=== PATIENT | female | born 1950 | race Caucasian/White ===

== ENCOUNTER 2020-02-14 17:34 | Observation (INO) ==
[2020-02-14 18:08] LABS: Basophils % 0.7 %; Eosinophils % 0.3 %; Hematocrit 27.8 % (35.3-44.9); Immature Granulocytes % 2.7 % (0-4); Immature Platelets 9.4 % (1.1-6.1); Lymphocytes # 1.2 K/mcL (0.6-4.6); Lymphocytes % 20.9 %; Mean Corpuscular HGB Conc 32.4 g/dL (31.6-35.5); Mean Corpuscular Hemoglobin 34.2 pg (28.0-33.3); Mean Corpuscular Volume 105.7 fL (83.0-100.0); Mean Platelet Volume 11.9 fL (9.4-12.4); Monocytes # 0.6 K/mcL (0.0-1.3); Monocytes % 9.4 %; Neutrophils # 3.9 K/mcL (1.6-8.9); Red Blood Count 2.63 M/mcL (3.82-4.97); Red Cell Distribution Width 13.9 % (11.5-14.5); White Blood Count 5.8 K/mcL (4.3-11.1)
[2020-02-14 18:09] LABS: Platelet Count 111 K/mcL (140-400)
[2020-02-14 18:26] LABS: BUN/Creatinine Ratio 26 (6-26); Blood Urea Nitrogen 27 mg/dL (8-23); Calcium 9.7 mg/dL (8.6-10.3); Carbon Dioxide 34 mEq/L (23-29); Chloride 96 mEq/L (98-107); Glucose 118 mg/dL (70-105); Magnesium 1.6 mg/dL (1.6-2.6); Osmolality,Calculated 290 (280-300); Phosphorous 3.4 mg/dL (2.7-4.5); Potassium 4.3 mEq/L (3.5-5.1); Sodium 137 mEq/L (136-145); eGFR For African Americans > 60 (> 60); eGFR For Non-African Americans 53 (> 60)
[2020-02-14 18:27] LABS: Creatine Kinase 85 Units/L (30-223)
[2020-02-14 18:28] LABS: Troponin I < 0.03 ng/mL (< 0.04)
[2020-02-14 18:33] LABS: Bilirubin,Urine Negative (Negative); Blood,Urine Negative (Negative); Clarity,Urine Clear (Clear); Color,Urine Colorless (Yellow); Glucose,Urine (UA) Normal (Normal); Ketones,Urine Trace mg/dL (Negative); Leukocyte Esterase,Urine Negative (Negative); Nitrite,Urine Negative (Negative); Protein,Urine Negative (Neg-Trace); Specific Gravity,Urine 1.013 (1.010-1.025); Urobilinogen,Urine Normal (Normal)
[2020-02-14 18:40] LABS: Amphetamine Screen,Urine Negative ng/mL (Cutoff=1000); Barbiturate Screen,Urine Negative ng/mL (Cutoff=200); Benzodiazepines Screen,Urine Negative ng/mL (Cutoff=200); Cannabinoid Screen,Urine Negative ng/mL (Cutoff = 50); Cocaine Screen,Urine Negative ng/mL (Cutoff= 300); Opiate Screen,Urine Negative ng/mL (Cutoff=300); Phencyclidine Screen,Urine Negative ng/mL (Cutoff=25)
[2020-02-14 18:49] LABS: INR 0.9; Prothrombin Time 10.6 Seconds (9.4-12.1)
[2020-02-14 18:52] LABS: Activated Partial Thrombo Time 34.6 Seconds (26.0-36.0)
[2020-02-14 18:56] LABS: Alanine Aminotransferase 15 Units/L (7-52); Albumin 3.5 g/dL (3.5-5.7); Albumin/Globulin Ratio 1.3 (1.1-2.2); Alkaline Phosphatase 84 Units/L (34-104); Aspartate Amino Transferase 18 Units/L (13-39); Bilirubin,Direct 0.1 mg/dL (0.0-0.2); Bilirubin,Indirect 0.2 mg/dL (0.0-1.0); Bilirubin,Total 0.3 mg/dL (0.3-1.0); Globulin 2.8 g/dL (2.4-3.5); Total Protein 6.3 g/dL (6.4-8.9)
[2020-02-14 19:10] LABS: Lipase 192 Units/L (11-82)
[2020-02-14 19:33] LABS: VBG HCO3 36 mEq/L (21-27); VBG PCO2 57 mmHg (41-51); VBG PH 7.41 pH Units (7.32-7.42); VBG PO2 138 mmHg (25-50)
[2020-02-14 19:57] LABS: Valproate 66 mcg/mL (50-100)
[2020-02-14] MEDS ORDERED: Naloxone 0.4 MG/ML INJ IVP PRN (21:18)
[2020-02-14] MEDS ORDERED: 0.9 % Sodium Chloride 1,000 ML IVC ONE (23:59)
[2020-02-15 03:42] LABS: Hemoglobin 8.2 g/dL (11.5-15.4); Mean Corpuscular HGB Conc 31.5 g/dL (31.6-35.5); Mean Corpuscular Hemoglobin 33.3 pg (28.0-33.3); Mean Corpuscular Volume 105.7 fL (83.0-100.0); Platelet Count 109 K/mcL (140-400); Red Blood Count 2.46 M/mcL (3.82-4.97); Red Cell Distribution Width 13.6 % (11.5-14.5); White Blood Count 4.7 K/mcL (4.3-11.1)
[2020-02-15 04:00] LABS: BUN/Creatinine Ratio 27 (6-26); Blood Urea Nitrogen 25 mg/dL (8-23); Calcium 9.7 mg/dL (8.6-10.3); Carbon Dioxide 36 mEq/L (23-29); Chloride 97 mEq/L (98-107); Glucose 75 mg/dL (70-105); Osmolality,Calculated 295 (280-300); Sodium 141 mEq/L (136-145); eGFR For African Americans > 60 (> 60); eGFR For Non-African Americans > 60 (> 60)
[2020-02-15 07:17] VITALS: BP 146/77
[2020-02-15] MEDS ORDERED: Loratadine 10 MG TABLET PO PRN (09:04)
[2020-02-15] MEDS ORDERED: Acetaminophen 325 MG TABLET PO PRN (09:04)
[2020-02-15] MEDS ORDERED: Valproic Acid Oral Soln 250 MG/5 ML UDC PO SCH ×2 (09:15→21:00)
[2020-02-15] MEDS ORDERED: Cholecalciferol (D-3) 1,000 UNIT (25MCG) TABLET PO SCH (09:15)
[2020-02-15] MEDS ORDERED: Fluticasone Propionate Nasal 50 MCG/SPRAY BOTTLE NS SCH (09:15)
[2020-02-15] MEDS ORDERED: Isosorbide MONOnitrate (24 HR) 30 MG TAB.ER.24H PO SCH (09:15)
[2020-02-15] MEDS ORDERED: PARoxetine 20 MG TABLET PO SCH (09:15)
[2020-02-15] MEDS ORDERED: Aspirin 81 MG TAB.CHEW PO SCH (09:15)
[2020-02-15] MEDS ORDERED: Metoprolol XL (24 HR) Succ 50 MG TAB.ER.24H PO SCH (09:15)
[2020-02-15] MEDS ORDERED: Budesonide/Formoterol 160/4.5 1 PUFF INH IH SCH (10:00)
[2020-02-15] MEDS ORDERED: Tiotropium 18 MCG inhalation IH SCH (10:00)
[2020-02-15] MEDS ORDERED: Ipratropium/Albuterol Neb 3 ML IH SCH (12:00)
[2020-02-15] MEDS ORDERED: Melatonin 3 MG TABLET PO SCH (21:00)
[2020-02-15] MEDS ORDERED: Chlorhexidine Rinse 15 ML MOUTHWASH MM SCH (21:00)
[2020-02-15] MEDS ORDERED: traZODone 50 MG TABLET PO SCH (21:00)
[2020-02-16] MEDS ORDERED: Furosemide 20 MG TABLET PO SCH (09:00)
== END 2020-02-15 18:16 | disposition other institution (70) ==
LOC: 3BNU 17:34 → EMEROOARM 17:34 → SUATTDRO 20:23 → 3BNU 20:58
PROVIDERS: ADMIT Family Medicine; ATTEND Internal Medicine

== ENCOUNTER 2020-02-28 16:21 | Inpatient (IN) ==
[2020-02-28] MEDS ORDERED: 0.9 % Sodium Chloride 1,000 ML IVC ONE ×3 (16:42→19:59)
[2020-02-28] MEDS ORDERED: Ondansetron 4 MG/2 ML VIAL IVP ONE (16:44)
[2020-02-28 17:25] LABS: Bilirubin,Urine Negative (Negative); Blood,Urine Negative (Negative); Clarity,Urine Clear (Clear); Color,Urine Light-Yellow (Yellow); Glucose,Urine (UA) Normal (Normal); Ketones,Urine Negative (Negative); Leukocyte Esterase,Urine Negative (Negative); Nitrite,Urine Negative (Negative); PH,Urine 6.5 pH Units (5.0-8.0); Protein,Urine Negative (Neg-Trace); Specific Gravity,Urine 1.022 (1.010-1.025); Urobilinogen,Urine Normal (Normal)
[2020-02-28 17:31] LABS: Basophils % 0.5 %; Eosinophils # 0.1 K/mcL (0.0-0.6); Eosinophils % 1.4 %; Hematocrit 30.3 % (35.3-44.9); Hemoglobin 9.7 g/dL (11.5-15.4); Immature Granulocytes % 0.8 % (0-4); Lymphocytes # 1.3 K/mcL (0.6-4.6); Lymphocytes % 35.7 %; Mean Corpuscular Hemoglobin 34.2 pg (28.0-33.3); Mean Corpuscular Volume 106.7 fL (83.0-100.0); Mean Platelet Volume 10.6 fL (9.4-12.4); Monocytes # 0.3 K/mcL (0.0-1.3); Monocytes % 8.4 %; Platelet Count 189 K/mcL (140-400); Red Blood Count 2.84 M/mcL (3.82-4.97); Red Cell Distribution Width 14.1 % (11.5-14.5); Segmented Neutrophils % 53.2 %; White Blood Count 3.7 K/mcL (4.3-11.1)
[2020-02-28 17:39] LABS: Amphetamine Screen,Urine Negative ng/mL (Cutoff=1000); Barbiturate Screen,Urine Negative ng/mL (Cutoff=200); Benzodiazepines Screen,Urine Negative ng/mL (Cutoff=200); Cannabinoid Screen,Urine Negative ng/mL (Cutoff = 50); Cocaine Screen,Urine Negative ng/mL (Cutoff= 300); Opiate Screen,Urine Negative ng/mL (Cutoff=300); Phencyclidine Screen,Urine Negative ng/mL (Cutoff=25)
[2020-02-28 17:51] LABS: Alanine Aminotransferase 24 Units/L (7-52); Albumin 3.5 g/dL (3.5-5.7); Albumin/Globulin Ratio 1.5 (1.1-2.2); Alkaline Phosphatase 71 Units/L (34-104); Aspartate Amino Transferase 23 Units/L (13-39); BUN/Creatinine Ratio 30 (6-26); Bilirubin,Direct 0.1 mg/dL (0.0-0.2); Bilirubin,Indirect 0.2 mg/dL (0.0-1.0); Bilirubin,Total 0.3 mg/dL (0.3-1.0); Blood Urea Nitrogen 26 mg/dL (8-23); Calcium 10.1 mg/dL (8.6-10.3); Carbon Dioxide 43 mEq/L (23-29); Chloride 98 mEq/L (98-107); Ethanol < 10 mg/dL (Less than 10); Globulin 2.4 g/dL (2.4-3.5); Glucose 107 mg/dL (70-105); Osmolality,Calculated 299 (280-300); Potassium 4.5 mEq/L (3.5-5.1); Sodium 142 mEq/L (136-145); Total Protein 5.9 g/dL (6.4-8.9); Troponin I < 0.03 ng/mL (< 0.04); Valproate 83 mcg/mL (50-100); eGFR For African Americans > 60 (> 60); eGFR For Non-African Americans > 60 (> 60)
[2020-02-28 19:30] LABS: Adenovirus Not Detected (Not Detect); Coronavirus 229E Not Detected (Not Detect); Coronavirus HKU1 Not Detected (Not Detect); Coronavirus NL63 Not Detected (Not Detect); Coronavirus OC43 Not Detected (Not Detect)
[2020-02-28 19:33] LABS: Bordetella Pertussis Not Detected (Not Detect); Chlamydophila pneumoniae Not Detected (Not Detect); Human Metapneumovirus Not Detected (Not Detect); Human Rhinovirus/Enterovirus Not Detected (Not Detect); Influenza A Subtype 2009 H1 Not Detected (Not Detect); Influenza B Not Detected (Not Detect); Mycoplasma pneumoniae Not Detected (Not Detect); Parainfluenza Virus 1 Not Detected (Not Detect); Parainfluenza Virus 2 Not Detected (Not Detect); Parainfluenza Virus 3 Not Detected (Not Detect); Parainfluenza Virus 4 Not Detected (Not Detect); Respiratory Syncytial Virus Not Detected (Not Detect)
[2020-02-28] MEDS ORDERED: Piperacillin/Tazobactam 3.375 GM in 0.9 % Sodium Chloride Mini Bag 100 ML IVPB ONE (19:59)
[2020-02-28] MEDS ORDERED: Vancomycin 1,500 MG/265 ML IV.SOLN IVPB ONE (19:59)
[2020-02-28] MEDS ORDERED: Azithromycin 500 MG in D5% in Water 250 ML IVPB ONE (19:59)
[2020-02-28] MEDS ORDERED: Naloxone 0.4 MG/ML INJ IVP PRN (22:22)
[2020-02-28 22:55] LABS: ABG Base Excess 12 mEq/L (-2 to 3); ABG HCO3 41 mEq/L (21-27); ABG Oxygen Saturation 90 % (95-98); ABG PCO2 86 mmHg (35-45); ABG PH 7.28 pH Units (7.32-7.45); ABG PO2 70 mmHg (85-104); ABG TCO2 43 mEq/L (20-26); Blood Gas VT 450 cc
[2020-02-28] MEDS ORDERED: Ondansetron 4 MG/2 ML VIAL IVP PRN (23:51)
[2020-02-29] MEDS: Ipratropium/Albuterol Neb 3 ML IH SCH ×5 (00:15→21:44)
[2020-02-29] MEDS: Valproic Acid Oral Soln 250 MG/5 ML UDC PO SCH ×3 (00:20→21:26)
[2020-02-29 04:09] LABS: ABG Base Excess 15 mEq/L (-2 to 3); ABG HCO3 45 mEq/L (21-27); ABG Oxygen Saturation 100 % (95-98); ABG PCO2 89 mmHg (35-45); ABG PH 7.31 pH Units (7.32-7.45); ABG PO2 196 mmHg (85-104); ABG TCO2 47 mEq/L (20-26); Blood Gas VT 450 cc
[2020-02-29 05:52] LABS: Hematocrit 29.1 % (35.3-44.9); Hemoglobin 9.1 g/dL (11.5-15.4); Mean Corpuscular HGB Conc 31.3 g/dL (31.6-35.5); Mean Corpuscular Hemoglobin 34.6 pg (28.0-33.3); Mean Corpuscular Volume 110.6 fL (83.0-100.0); Mean Platelet Volume 11.3 fL (9.4-12.4); Platelet Count 172 K/mcL (140-400); Red Blood Count 2.63 M/mcL (3.82-4.97); Red Cell Distribution Width 14.4 % (11.5-14.5)
[2020-02-29 06:05] LABS: BUN/Creatinine Ratio 33 (6-26); Blood Urea Nitrogen 26 mg/dL (8-23); Calcium 9.1 mg/dL (8.6-10.3); Carbon Dioxide 37 mEq/L (23-29); Chloride 102 mEq/L (98-107); Glucose 134 mg/dL (70-105); Osmolality,Calculated 301 (280-300); Potassium 5.3 mEq/L (3.5-5.1); Sodium 142 mEq/L (136-145); eGFR For African Americans > 60 (> 60); eGFR For Non-African Americans > 60 (> 60)
[2020-02-29] MEDS: Lactulose Oral Soln 20 GM/30 ML UDC PO SCH ×2 (07:44→21:26)
[2020-02-29] MEDS: PARoxetine 20 MG TABLET PO SCH (07:44)
[2020-02-29] MEDS ORDERED: Aspirin 81 MG TAB.CHEW PO SCH (09:00)
[2020-02-29 09:25] LABS: Potassium 5.1 mEq/L (3.5-5.1)
[2020-02-29] MEDS: Budesonide/Formoterol 160/4.5 1 PUFF INH IH SCH ×3 (10:38→21:44)
[2020-02-29 11:12] LABS: Thyroid Stimulating Hormone 1.25 mcIU/mL (0.340-5.600)
[2020-02-29 15:27] LABS: ABG Base Excess 13 mEq/L (-2 to 3); ABG HCO3 40 mEq/L (21-27); ABG Oxygen Saturation 95 % (95-98); ABG PCO2 67 mmHg (35-45); ABG PH 7.38 pH Units (7.32-7.45); ABG PO2 79 mmHg (85-104); ABG TCO2 42 mEq/L (20-26); Blood Gas VT 500 cc
[2020-02-29 21:57] LABS: ABG Base Excess 11 mEq/L (-2 to 3); ABG HCO3 37 mEq/L (21-27); ABG Oxygen Saturation 96 % (95-98); ABG PCO2 62 mmHg (35-45); ABG PH 7.39 pH Units (7.32-7.45); ABG PO2 86 mmHg (85-104); ABG TCO2 39 mEq/L (20-26); Blood Gas VT 500 cc
[2020-03-01] MEDS: Lactulose Oral Soln 20 GM/30 ML UDC PO SCH ×3 (00:02→20:50)
[2020-03-01] MEDS: Valproic Acid Oral Soln 250 MG/5 ML UDC PO SCH ×2 (00:05→20:50)
[2020-03-01] MEDS: Ipratropium/Albuterol Neb 3 ML IH SCH ×4 (03:31→21:23)
[2020-03-01 05:12] LABS: Basophils % 0.5 %; Eosinophils % 0.5 %; Hematocrit 29.1 % (35.3-44.9); Hemoglobin 9.1 g/dL (11.5-15.4); Immature Granulocytes % 1.6 % (0-4); Lymphocytes # 1.9 K/mcL (0.6-4.6); Lymphocytes % 29.6 %; Mean Corpuscular HGB Conc 31.3 g/dL (31.6-35.5); Mean Corpuscular Hemoglobin 34.6 pg (28.0-33.3); Mean Corpuscular Volume 110.6 fL (83.0-100.0); Mean Platelet Volume 11.4 fL (9.4-12.4); Monocytes # 0.6 K/mcL (0.0-1.3); Monocytes % 9.7 %; Neutrophils # 3.7 K/mcL (1.6-8.9); Platelet Count 147 K/mcL (140-400); Red Blood Count 2.63 M/mcL (3.82-4.97); Red Cell Distribution Width 14.9 % (11.5-14.5); Segmented Neutrophils % 58.1 %; White Blood Count 6.3 K/mcL (4.3-11.1)
[2020-03-01 05:31] LABS: Calcium 9.4 mg/dL (8.6-10.3); Potassium 4.4 mEq/L (3.5-5.1)
[2020-03-01 05:56] LABS: Folate 7.4 ng/mL (3.0-16.0)
[2020-03-01 06:05] LABS: Platelet Estimate Normal (Normal)
[2020-03-01] MEDS: PARoxetine 20 MG TABLET PO SCH (08:27)
[2020-03-01] MEDS: Budesonide/Formoterol 160/4.5 1 PUFF INH IH SCH ×2 (10:38→21:23)
[2020-03-01] MEDS: *HR* Heparin 5,000 UNIT/ML VIAL SQ SCH ×2 (14:57→20:51)
[2020-03-02 03:43] LABS: BUN/Creatinine Ratio 26 (6-26); Blood Urea Nitrogen 24 mg/dL (8-23); Calcium 9.5 mg/dL (8.6-10.3); Carbon Dioxide 35 mEq/L (23-29); Chloride 102 mEq/L (98-107); Glucose 84 mg/dL (70-105); Osmolality,Calculated 299 (280-300); Potassium 4.6 mEq/L (3.5-5.1); Sodium 143 mEq/L (136-145); eGFR For African Americans > 60 (> 60); eGFR For Non-African Americans > 60 (> 60)
[2020-03-02 03:58] LABS: Basophils % 0.7 %; Eosinophils # 0.1 K/mcL (0.0-0.6); Eosinophils % 1.4 %; Hematocrit 28.2 % (35.3-44.9); Hemoglobin 8.6 g/dL (11.5-15.4); Immature Granulocytes % 2.2 % (0-4); Lymphocytes # 1.8 K/mcL (0.6-4.6); Lymphocytes % 42.6 %; Mean Corpuscular HGB Conc 30.5 g/dL (31.6-35.5); Mean Corpuscular Hemoglobin 33.6 pg (28.0-33.3); Mean Corpuscular Volume 110.2 fL (83.0-100.0); Mean Platelet Volume 11.5 fL (9.4-12.4); Monocytes # 0.4 K/mcL (0.0-1.3); Monocytes % 9.8 %; Neutrophils # 1.8 K/mcL (1.6-8.9); Platelet Count 124 K/mcL (140-400); Red Blood Count 2.56 M/mcL (3.82-4.97); Red Cell Distribution Width 14.4 % (11.5-14.5); Segmented Neutrophils % 43.3 %; White Blood Count 4.2 K/mcL (4.3-11.1)
[2020-03-02] MEDS: Ipratropium/Albuterol Neb 3 ML IH SCH ×4 (04:02→22:02)
[2020-03-02 04:55] LABS: Platelet Estimate Slight Decrease (Normal)
[2020-03-02] MEDS: *HR* Heparin 5,000 UNIT/ML VIAL SQ SCH ×3 (06:00→20:42)
[2020-03-02] MEDS ORDERED: Acetaminophen IV 500 MG/50 ML INFUS..BTL IVPB ONE (06:48)
[2020-03-02] MEDS: Lactulose Oral Soln 20 GM/30 ML UDC PO SCH ×2 (08:46→20:42)
[2020-03-02] MEDS: PARoxetine 20 MG TABLET PO SCH (08:47)
[2020-03-02] MEDS: Valproic Acid Oral Soln 250 MG/5 ML UDC PO SCH ×2 (08:47→20:42)
[2020-03-02] MEDS: Budesonide/Formoterol 160/4.5 1 PUFF INH IH SCH ×2 (10:16→22:02)
[2020-03-03 01:15] LABS: Basophils # 0.1 K/mcL (0.0-0.2); Basophils % 0.8 %; Eosinophils # 0.1 K/mcL (0.0-0.6); Eosinophils % 1.8 %; Hemoglobin 8.9 g/dL (11.5-15.4); Immature Granulocytes % 1.8 % (0-4); Lymphocytes # 1.6 K/mcL (0.6-4.6); Lymphocytes % 26.1 %; Mean Corpuscular HGB Conc 31.8 g/dL (31.6-35.5); Mean Corpuscular Volume 110.2 fL (83.0-100.0); Mean Platelet Volume 12.2 fL (9.4-12.4); Monocytes # 0.9 K/mcL (0.0-1.3); Monocytes % 14.1 %; Neutrophils # 3.4 K/mcL (1.6-8.9); Platelet Count 100 K/mcL (140-400); Red Blood Count 2.54 M/mcL (3.82-4.97); Red Cell Distribution Width 14.8 % (11.5-14.5); Segmented Neutrophils % 55.4 %; White Blood Count 6.1 K/mcL (4.3-11.1)
[2020-03-03 01:28] LABS: BUN/Creatinine Ratio 27 (6-26); Blood Urea Nitrogen 26 mg/dL (8-23); Calcium 9.2 mg/dL (8.6-10.3); Carbon Dioxide 33 mEq/L (23-29); Chloride 98 mEq/L (98-107); Glucose 107 mg/dL (70-105); Osmolality,Calculated 293 (280-300); Potassium 4.3 mEq/L (3.5-5.1); Sodium 139 mEq/L (136-145); eGFR For African Americans > 60 (> 60); eGFR For Non-African Americans 57 (> 60)
[2020-03-03 02:14] LABS: Anisocytosis 1+ (Not Present); Macrocytosis Present (Not Present)
[2020-03-03 02:15] LABS: Platelet Estimate Decreased (Normal)
[2020-03-03] MEDS: Ipratropium/Albuterol Neb 3 ML IH SCH ×4 (03:50→21:51)
[2020-03-03 03:51] LABS: ABG Base Excess 12 mEq/L (-2 to 3); ABG HCO3 39 mEq/L (21-27); ABG Oxygen Saturation 94 % (95-98); ABG PCO2 59 mmHg (35-45); ABG PH 7.43 pH Units (7.32-7.45); ABG PO2 71 mmHg (85-104); ABG TCO2 41 mEq/L (20-26)
[2020-03-03] MEDS: *HR* Heparin 5,000 UNIT/ML VIAL SQ SCH ×3 (04:20→22:10)
[2020-03-03] MEDS: Lactulose Oral Soln 20 GM/30 ML UDC PO SCH ×2 (08:34→22:10)
[2020-03-03] MEDS: Valproic Acid Oral Soln 250 MG/5 ML UDC PO SCH ×2 (08:35→22:09)
[2020-03-03] MEDS: PARoxetine 20 MG TABLET PO SCH (08:36)
[2020-03-03] MEDS: Budesonide/Formoterol 160/4.5 1 PUFF INH IH SCH ×2 (09:32→21:51)
[2020-03-04] MEDS: Ipratropium/Albuterol Neb 3 ML IH SCH ×3 (03:41→15:38)
[2020-03-04] MEDS: *HR* Heparin 5,000 UNIT/ML VIAL SQ SCH ×2 (05:54→14:56)
[2020-03-04] MEDS: Valproic Acid Oral Soln 250 MG/5 ML UDC PO SCH (10:39)
[2020-03-04] MEDS: Lactulose Oral Soln 20 GM/30 ML UDC PO SCH (10:39)
[2020-03-04] MEDS: PARoxetine 20 MG TABLET PO SCH (10:40)
[2020-03-04] MEDS: Budesonide/Formoterol 160/4.5 1 PUFF INH IH SCH (11:04)
[2020-03-04 15:05] VITALS: BP 115/70
== END 2020-03-04 17:17 | DRG 189 ==
LOC: EMEROOARM 16:21 → ICNU 16:21 → 2ANU 21:11 → SUATTDRO 02-29 13:44
PROVIDERS: ADMIT Internal Medicine; ATTEND Internal Medicine

== ENCOUNTER 2020-07-17 08:16 | Observation (INO) ==
[2020-07-17 08:54] LABS: Basophils % 0.5 %; Eosinophils # 0.1 K/mcL (0.0-0.6); Eosinophils % 1.7 %; Hematocrit 26.6 % (35.3-44.9); Hemoglobin 8.3 g/dL (11.5-15.4); Immature Granulocytes % 0.2 % (0-4); Lymphocytes # 1.7 K/mcL (0.6-4.6); Lymphocytes % 27.6 %; Mean Corpuscular HGB Conc 31.2 g/dL (31.6-35.5); Mean Corpuscular Hemoglobin 30.1 pg (28.0-33.3); Mean Corpuscular Volume 96.4 fL (83.0-100.0); Mean Platelet Volume 10.3 fL (9.4-12.4); Monocytes # 0.5 K/mcL (0.0-1.3); Monocytes % 8.3 %; Neutrophils # 3.7 K/mcL (1.6-8.9); Platelet Count 258 K/mcL (140-400); Red Blood Count 2.76 M/mcL (3.82-4.97); Red Cell Distribution Width 15.3 % (11.5-14.5); Segmented Neutrophils % 61.7 %; White Blood Count 6.1 K/mcL (4.3-11.1)
[2020-07-17 09:00] LABS: Prothrombin Time 11.5 Seconds (9.4-12.1)
[2020-07-17 09:03] LABS: VBG HCO3 34 mEq/L (21-27); VBG PCO2 59 mmHg (41-51); VBG PH 7.37 pH Units (7.32-7.42); VBG PO2 198 mmHg (25-50)
[2020-07-17 09:13] LABS: Alanine Aminotransferase 16 Units/L (7-52); Albumin 3.8 g/dL (3.5-5.7); Albumin/Globulin Ratio 1.5 (1.1-2.2); Alkaline Phosphatase 77 Units/L (34-104); Aspartate Amino Transferase 18 Units/L (13-39); Bilirubin,Indirect 0.3 mg/dL (0.0-1.0); Bilirubin,Total 0.3 mg/dL (0.3-1.0); Globulin 2.6 g/dL (2.4-3.5); Lipase 49 Units/L (11-82); Total Protein 6.4 g/dL (6.4-8.9); Valproate 31 mcg/mL (50-100)
[2020-07-17 09:30] LABS: Bilirubin,Urine Negative (Negative); Blood,Urine Negative (Negative); Clarity,Urine Clear (Clear); Color,Urine Light-Yellow (Yellow); Glucose,Urine (UA) Normal (Normal); Ketones,Urine Negative (Negative); Leukocyte Esterase,Urine Negative (Negative); Nitrite,Urine Negative (Negative); Protein,Urine Trace mg/dL (Neg-Trace); Specific Gravity,Urine 1.025 (1.010-1.025); Urobilinogen,Urine Normal (Normal)
[2020-07-17 09:48] LABS: Adenovirus Not Detected (Not Detect); Bordetella Pertussis Not Detected (Not Detect); Chlamydophila pneumoniae Not Detected (Not Detect); Coronavirus 229E Not Detected (Not Detect); Coronavirus HKU1 Not Detected (Not Detect); Coronavirus NL63 Not Detected (Not Detect); Coronavirus OC43 Not Detected (Not Detect); Human Metapneumovirus Not Detected (Not Detect); Human Rhinovirus/Enterovirus Not Detected (Not Detect); Influenza A Subtype 2009 H1 Not Detected (Not Detect); Influenza B Not Detected (Not Detect); Mycoplasma pneumoniae Not Detected (Not Detect); Parainfluenza Virus 1 Not Detected (Not Detect); Parainfluenza Virus 2 Not Detected (Not Detect); Parainfluenza Virus 3 Not Detected (Not Detect); Parainfluenza Virus 4 Not Detected (Not Detect); Respiratory Syncytial Virus Not Detected (Not Detect); SARS-CoV-2 Not Detected (Not Detect)
[2020-07-17 10:02] LABS: BUN/Creatinine Ratio 23 (6-26); Blood Urea Nitrogen 26 mg/dL (8-23); Calcium 9.7 mg/dL (8.6-10.3); Carbon Dioxide 33 mEq/L (23-29); Chloride 101 mEq/L (98-107); Glucose 93 mg/dL (70-105); Osmolality,Calculated 294 (280-300); Potassium 4.2 mEq/L (3.5-5.1); Sodium 140 mEq/L (136-145); Troponin I < 0.03 ng/mL (< 0.04); eGFR For African Americans 59 (> 60); eGFR For Non-African Americans 49 (> 60)
[2020-07-17] MEDS ORDERED: HydrOXYzine 100 MG/2 ML VIAL IM ONE (10:16)
[2020-07-17] MEDS ORDERED: Naloxone 0.4 MG/ML INJ IVP PRN (11:24)
[2020-07-17] MEDS ORDERED: Ondansetron 4 MG/2 ML VIAL IVP PRN (11:27)
[2020-07-17] MEDS ORDERED: Nitroglycerin 0.4 MG TAB.SUBL SL PRN (11:27)
[2020-07-17] MEDS ORDERED: Ipratropium/Albuterol Neb 3 ML IH PRN (11:27)
[2020-07-17] MEDS ORDERED: Perflutren Lipid Microsphere 1.3 ML in 0.9 % Sodium Chloride 8.7 ML IVP PRN (13:02)
[2020-07-17] MEDS: Acetaminophen 325 MG TABLET PO PRN ×2 (13:33→22:26)
[2020-07-17] MEDS: *HR* Heparin 5,000 UNIT/ML VIAL SQ SCH (17:32)
[2020-07-18 02:40] LABS: Basophils % 0.6 %; Eosinophils # 0.1 K/mcL (0.0-0.6); Eosinophils % 1.8 %; Hematocrit 26.7 % (35.3-44.9); Hemoglobin 7.9 g/dL (11.5-15.4); Immature Granulocytes % 0.2 % (0-4); Lymphocytes # 1.8 K/mcL (0.6-4.6); Lymphocytes % 36.6 %; Mean Corpuscular HGB Conc 29.6 g/dL (31.6-35.5); Mean Corpuscular Hemoglobin 29.3 pg (28.0-33.3); Mean Corpuscular Volume 98.9 fL (83.0-100.0); Mean Platelet Volume 11.2 fL (9.4-12.4); Monocytes # 0.4 K/mcL (0.0-1.3); Monocytes % 8.7 %; Neutrophils # 2.6 K/mcL (1.6-8.9); Platelet Count 258 K/mcL (140-400); Red Cell Distribution Width 15.3 % (11.5-14.5); Segmented Neutrophils % 52.1 %
[2020-07-18 03:02] LABS: BUN/Creatinine Ratio 23 (6-26); Blood Urea Nitrogen 23 mg/dL (8-23); Calcium 9.5 mg/dL (8.6-10.3); Carbon Dioxide 32 mEq/L (23-29); Chloride 102 mEq/L (98-107); Glucose 119 mg/dL (70-105); Osmolality,Calculated 295 (280-300); Potassium 4.3 mEq/L (3.5-5.1); Sodium 140 mEq/L (136-145); eGFR For African Americans > 60 (> 60); eGFR For Non-African Americans 54 (> 60)
[2020-07-18] MEDS: *HR* Heparin 5,000 UNIT/ML VIAL SQ SCH ×2 (05:59→17:17)
[2020-07-18] MEDS: *HR* LORazepam 0.5 MG TABLET PO SCH ×2 (10:05→17:17)
[2020-07-18] MEDS: PARoxetine 20 MG TABLET PO SCH (10:05)
[2020-07-18] MEDS: Aspirin 81 MG TAB.CHEW PO SCH (10:05)
[2020-07-18] MEDS: Bumetanide 1 MG TABLET PO SCH (10:05)
[2020-07-18] MEDS: levETIRAcetam 250 MG TABLET PO SCH ×2 (10:05→20:50)
[2020-07-18] MEDS: Lactulose Oral Soln 20 GM/30 ML UDC PO SCH ×2 (10:05→20:50)
[2020-07-18] MEDS: Valproic Acid Oral Soln 250 MG/5 ML UDC PO SCH ×2 (10:06→20:49)
[2020-07-18 10:23] LABS: Hematocrit 27.3 % (35.3-44.9); Hemoglobin 8.5 g/dL (11.5-15.4)
[2020-07-18] MEDS: Acetaminophen 325 MG TABLET PO PRN ×2 (10:26→20:49)
[2020-07-18] MEDS: Ipratropium/Albuterol Neb 3 ML IH SCH ×3 (10:42→22:14)
[2020-07-18] MEDS: Budesonide/Formoterol 160/4.5 1 PUFF INH IH SCH ×2 (10:42→22:16)
[2020-07-18] MEDS ORDERED: *HR* HYDROcodone/Acet 5/325 mg TABLET PO ONE (12:05)
[2020-07-18] MEDS: Melatonin 3 MG TABLET PO SCH (20:50)
[2020-07-19] MEDS: *HR* LORazepam 0.5 MG TABLET PO SCH ×3 (03:33→17:01)
[2020-07-19] MEDS: Ipratropium/Albuterol Neb 3 ML IH SCH ×4 (04:04→21:19)
[2020-07-19 05:03] LABS: Basophils % 0.3 %; Eosinophils # 0.1 K/mcL (0.0-0.6); Hematocrit 27.2 % (35.3-44.9); Hemoglobin 8.5 g/dL (11.5-15.4); Immature Granulocytes % 0.4 % (0-4); Lymphocytes % 29.1 %; Mean Corpuscular HGB Conc 31.3 g/dL (31.6-35.5); Mean Corpuscular Hemoglobin 30.2 pg (28.0-33.3); Mean Corpuscular Volume 96.8 fL (83.0-100.0); Mean Platelet Volume 10.3 fL (9.4-12.4); Monocytes # 0.6 K/mcL (0.0-1.3); Monocytes % 8.2 %; Neutrophils # 4.2 K/mcL (1.6-8.9); Platelet Count 268 K/mcL (140-400); Red Blood Count 2.81 M/mcL (3.82-4.97); Red Cell Distribution Width 15.2 % (11.5-14.5); White Blood Count 6.9 K/mcL (4.3-11.1)
[2020-07-19] MEDS: *HR* Heparin 5,000 UNIT/ML VIAL SQ SCH ×2 (05:09→17:01)
[2020-07-19] MEDS ORDERED: Regadenoson 0.4 MG/5 ML SYRINGE IVP ONE (07:08)
[2020-07-19] MEDS: Lactulose Oral Soln 20 GM/30 ML UDC PO SCH ×2 (09:39→22:32)
[2020-07-19] MEDS: Valproic Acid Oral Soln 250 MG/5 ML UDC PO SCH ×2 (09:39→22:32)
[2020-07-19] MEDS: Acetaminophen 325 MG TABLET PO PRN ×2 (09:40→22:39)
[2020-07-19] MEDS: PARoxetine 20 MG TABLET PO SCH (09:40)
[2020-07-19] MEDS: Bumetanide 1 MG TABLET PO SCH (09:41)
[2020-07-19] MEDS: Aspirin 81 MG TAB.CHEW PO SCH (09:41)
[2020-07-19] MEDS: levETIRAcetam 250 MG TABLET PO SCH ×2 (09:42→22:32)
[2020-07-19] MEDS: Budesonide/Formoterol 160/4.5 1 PUFF INH IH SCH ×2 (10:17→21:19)
[2020-07-19] MEDS: *HR* HYDROcodone/Acet 5/325 mg TABLET PO PRN (14:51)
[2020-07-19] MEDS: Melatonin 3 MG TABLET PO SCH (22:31)
[2020-07-20] MEDS: *HR* LORazepam 0.5 MG TABLET PO SCH ×3 (00:42→15:28)
[2020-07-20] MEDS: Ipratropium/Albuterol Neb 3 ML IH SCH ×4 (03:54→22:13)
[2020-07-20 05:20] LABS: Hematocrit 27.5 % (35.3-44.9); Hemoglobin 8.3 g/dL (11.5-15.4); Mean Corpuscular HGB Conc 30.2 g/dL (31.6-35.5); Mean Corpuscular Hemoglobin 29.6 pg (28.0-33.3); Mean Corpuscular Volume 98.2 fL (83.0-100.0); Mean Platelet Volume 10.7 fL (9.4-12.4); Platelet Count 284 K/mcL (140-400); Red Cell Distribution Width 15.7 % (11.5-14.5); White Blood Count 5.7 K/mcL (4.3-11.1)
[2020-07-20 05:54] LABS: Calcium 9.6 mg/dL (8.6-10.3); Potassium 4.5 mEq/L (3.5-5.1)
[2020-07-20] MEDS: *HR* Heparin 5,000 UNIT/ML VIAL SQ SCH ×2 (06:20→18:39)
[2020-07-20] MEDS: PARoxetine 20 MG TABLET PO SCH (08:44)
[2020-07-20] MEDS: Bumetanide 1 MG TABLET PO SCH (08:44)
[2020-07-20] MEDS: Aspirin 81 MG TAB.CHEW PO SCH (08:44)
[2020-07-20] MEDS: levETIRAcetam 250 MG TABLET PO SCH ×2 (08:44→20:03)
[2020-07-20] MEDS: Valproic Acid Oral Soln 250 MG/5 ML UDC PO SCH ×2 (08:45→20:04)
[2020-07-20] MEDS: Lactulose Oral Soln 20 GM/30 ML UDC PO SCH ×2 (08:45→20:04)
[2020-07-20] MEDS: Budesonide/Formoterol 160/4.5 1 PUFF INH IH SCH ×2 (10:45→22:13)
[2020-07-20] MEDS: *HR* HYDROcodone/Acet 5/325 mg TABLET PO PRN ×2 (12:32→18:45)
[2020-07-20] MEDS: Melatonin 3 MG TABLET PO SCH (20:04)
[2020-07-21] MEDS: *HR* LORazepam 0.5 MG TABLET PO SCH ×3 (00:17→16:53)
[2020-07-21] MEDS: Ipratropium/Albuterol Neb 3 ML IH SCH ×4 (03:40→21:31)
[2020-07-21 04:17] LABS: Calcium 9.5 mg/dL (8.6-10.3); Potassium 4.1 mEq/L (3.5-5.1)
[2020-07-21] MEDS: *HR* HYDROcodone/Acet 5/325 mg TABLET PO PRN ×2 (05:14→16:53)
[2020-07-21] MEDS: *HR* Heparin 5,000 UNIT/ML VIAL SQ SCH ×2 (05:19→16:54)
[2020-07-21] MEDS: Aspirin 81 MG TAB.CHEW PO SCH (09:25)
[2020-07-21] MEDS: PARoxetine 20 MG TABLET PO SCH (09:26)
[2020-07-21] MEDS: Lactulose Oral Soln 20 GM/30 ML UDC PO SCH ×2 (09:26→22:21)
[2020-07-21] MEDS: Valproic Acid Oral Soln 250 MG/5 ML UDC PO SCH ×2 (09:26→22:20)
[2020-07-21] MEDS: levETIRAcetam 250 MG TABLET PO SCH ×2 (09:26→22:21)
[2020-07-21] MEDS: Budesonide/Formoterol 160/4.5 1 PUFF INH IH SCH ×2 (11:08→21:31)
[2020-07-21] MEDS: Melatonin 3 MG TABLET PO SCH (22:21)
[2020-07-21] MEDS: Acetaminophen 325 MG TABLET PO PRN (22:24)
[2020-07-22] MEDS: *HR* LORazepam 0.5 MG TABLET PO SCH ×2 (01:13→08:32)
[2020-07-22 02:43] LABS: Hematocrit 25.8 % (35.3-44.9); Hemoglobin 7.9 g/dL (11.5-15.4); Mean Corpuscular HGB Conc 30.6 g/dL (31.6-35.5); Mean Corpuscular Hemoglobin 29.2 pg (28.0-33.3); Mean Corpuscular Volume 95.2 fL (83.0-100.0); Mean Platelet Volume 10.5 fL (9.4-12.4); Platelet Count 254 K/mcL (140-400); Red Blood Count 2.71 M/mcL (3.82-4.97); Red Cell Distribution Width 16.1 % (11.5-14.5)
[2020-07-22 03:03] LABS: Calcium 9.1 mg/dL (8.6-10.3); Potassium 4.3 mEq/L (3.5-5.1)
[2020-07-22] MEDS: Ipratropium/Albuterol Neb 3 ML IH SCH ×2 (03:18→09:54)
[2020-07-22] MEDS: *HR* HYDROcodone/Acet 5/325 mg TABLET PO PRN ×2 (03:52→10:08)
[2020-07-22] MEDS: *HR* Heparin 5,000 UNIT/ML VIAL SQ SCH (05:49)
[2020-07-22 06:48] VITALS: BP 121/77
[2020-07-22] MEDS: Lactulose Oral Soln 20 GM/30 ML UDC PO SCH (08:30)
[2020-07-22] MEDS: PARoxetine 20 MG TABLET PO SCH (08:31)
[2020-07-22] MEDS: levETIRAcetam 250 MG TABLET PO SCH (08:31)
[2020-07-22] MEDS: Valproic Acid Oral Soln 250 MG/5 ML UDC PO SCH (08:31)
[2020-07-22] MEDS: Aspirin 81 MG TAB.CHEW PO SCH (08:31)
[2020-07-22] MEDS: Budesonide/Formoterol 160/4.5 1 PUFF INH IH SCH (09:54)
== END 2020-07-22 11:01 ==
LOC: 3BNU 08:16 → EMEROOARM 08:16 → SUATTDRO 11:53 → 3BNU 12:32
PROVIDERS: ADMIT Student in an Organized Health Care Education/Training Program; ATTEND Internal Medicine